=== PATIENT | male | born 1950 | race Caucasian/White ===

== ENCOUNTER → 2023-10-17 15:46 | Outpatient (REF) | payer BC, SELFPAY | LOC: RAD 15:46 | PROVIDERS: ATTENDING PHYSICIAN Specialist; FAMILY PHYSICIAN Internal Medicine | DX: N21.0 Calculus in bladder (principal); N20.1 Calculus of ureter; N20.0 Calculus of kidney | CPT/HCPCS: 74176 ==

== ENCOUNTER → 2023-12-14 06:26 | Day surgery (SDC) | payer BC, SELFPAY ==
[2023-12-14 09:00] LABS: Glucose - Point of Care 104 mg/dl (70-99)
== END ==
LOC: GI 06:26
PROVIDERS: ATTENDING PHYSICIAN Internal Medicine Gastroenterology; FAMILY PHYSICIAN Internal Medicine
DX: D12.3 Benign neoplasm of transverse colon (principal); D12.5 Benign neoplasm of sigmoid colon; K57.30 Diverticulosis of large intestine without perforation or abscess without bleeding; K64.8 Other hemorrhoids; R93.3 Abnormal findings on diagnostic imaging of other parts of digestive tract
CPT/HCPCS: 45385; 43235; 88305; 82962

== ENCOUNTER → 2023-12-27 08:28 | Outpatient (REF) | payer BC, SELFPAY ==
[2023-12-27 09:24] LABS: % Eosinophils 4.6 % (0-6); % Immature Granulocytes 0.6 % (0-0.5); % Lymphocytes 19.3 % (20.5-51.1); % Monocytes 6.3 % (1.7-9.3); % Neutrophils 68.2 % (42.2-75.2); Absolute Basophils 0.1 10^3/uL (0-0.2); Absolute Eosinophils 0.2 10^3/uL (0-0.7); Absolute Monocytes 0.3 10^3/uL (0.1-0.6); Absolute Neutrophils 3.6 10^3/uL (1.4-6.5); Hematocrit 43.3 % (39.0-52.0); Hemoglobin 14.3 g/dL (13.0-18.0); Mean Corpuscular Hgb 28.1 pg (27.0-31.0); Mean Corpuscular Volume 85.2 fL (80.0-94.0); Mean Platelet Volume 9.8 fL (7.4-10.4); Nucleated Red Blood Cells % 0 % (-); Platelet Count 254 10^3/uL (130-400); Red Blood Cell Count 5.08 10^6/uL (4.70-6.10); Red Cell Dist. Width 13.4 % (11.5-14.5); White Blood Cell Count 5.2 10^3/uL (4.8-10.8)
[2023-12-27 09:36] LABS: Erythrocyte Sed Rate 19 mm/hour (0-20)
[2023-12-27 12:25] LABS: Glycohemoglobin (HgbA1c) 6.7 % (4.0-5.6)
[2023-12-27 12:42] LABS: ALT (SGPT) 13 U/L (0-50); AST (SGOT) 18 U/L (17-59); Albumin 4.5 g/dl (3.5-5.0); Alkaline Phosphatase 115 U/L (38-126); Blood Urea Nitrogen 31 mg/dl (9-20); Calcium 9.9 mg/dl (8.4-10.2); Carbon Dioxide 28 mmol/L (22-30); Chloride 103 mmol/L (98-107); Glucose 131 mg/dl (70-99); HDL Cholesterol 47 mg/dl; LDL Cholesterol, Calculated 113 mg/dl; Potassium 4.8 mmol/L (3.5-5.1); Sodium 140 mmol/L (135-145); Total Bilirubin 0.6 mg/dl (0.2-1.3); Total Cholesterol 172 mg/dl (50-199); Total Protein 7.3 g/dl (6.3-8.2); Triglyceride 61 mg/dl (10-149); Very Low Density Lipoprotein 12 mg/dl (0-30); eGFR > 60.00
[2023-12-27 13:24] LABS: TSH 1.47 uIU/ml (0.47-4.68)
[2023-12-29 07:23] LABS: ANA, IgG Reflex to HEp-2 None Detected (None Detected)
[2023-12-29 10:33] LABS: Rheumatoid Agglutinin Less Than 10 IU (<10 IU)
== END ==
LOC: REG 08:28
PROVIDERS: ATTENDING PHYSICIAN Nurse Practitioner
DX: E11.9 Type 2 diabetes mellitus without complications (principal); E78.5 Hyperlipidemia, unspecified; Z87.438 Personal history of other diseases of male genital organs; R53.83 Other fatigue; M19.90 Unspecified osteoarthritis, unspecified site
CPT/HCPCS: 36415; 80053; 80061; 83036; 84153; 84154; 84443; 85025; 85652; 86038; 86430

== ENCOUNTER 2024-01-04 06:07 | Day surgery (SDC) | payer BC, SELFPAY ==
[2023-12-30 12:58] VITALS: BMI 42.8
[2023-12-30 13:15] LABS: Urine Albumin 2+ (Neg - Trace); Urine Bilirubin Negative (Negative); Urine Character Slightly Cloudy (Clear); Urine Color Yellow; Urine Glucose Negative (Negative); Urine Ketone Trace (Negative); Urine Leukocyte 2+ (Negative); Urine Nitrite Negative (Negative); Urine Occult Blood 4+ (Negative); Urine Urobilinogen Negative (Neg - 1+)
[2023-12-30 13:25] LABS: Urine Red Blood Cell 50-60 /HPF (0-2)
[2023-12-30 13:26] LABS: Urine Bacteria Moderate (Negative); Urine White Cell 26-30 /HPF (0-5)
[2023-12-30 13:32] LABS: INR 1.05; PT 13.6 Sec (11.4-14.6)
[2023-12-30 13:33] LABS: APTT 34.7 Sec (23.4-35.0)
--- NOTE | 2023-12-30 13:40 | PTCARENOTE ---
Debby in Dr. Nicholas's office made aware of urine WBC 26-30 and moderate bacteria.
[2024-01-04] VITALS (7 sets, daily range): BP systolic 133–177; BP diastolic 75–90; BMI 42.8
[2024-01-04] MEDS: NORMOSOL-R 1000 IV (06:45)
[2024-01-04 06:55] LABS: Glucose - Point of Care 122 mg/dl (70-99)
[2024-01-04 08:54] LABS: Glucose - Point of Care 127 mg/dl (70-99)
[2024-01-04] MEDS: Pyridium 200 MG PO (09:16)
== END 2024-01-04 10:21 | disposition home or self-care (01) ==
LOC: SDS 06:07
PROVIDERS: ATTENDING PHYSICIAN Specialist; FAMILY PHYSICIAN Nurse Practitioner; OTHER PHYSICIAN Internal Medicine Cardiovascular Disease
DX: N20.2 Calculus of kidney with calculus of ureter (principal); Z86.19 Personal history of other infectious and parasitic diseases
CPT/HCPCS: 52356; 36415; 74018; 76000; 81003; 81015; 82962; 85610; 85730; 93005; C2617

== ENCOUNTER → 2024-09-12 10:02 | Outpatient (REF) | payer BC, SELFPAY ==
[2024-09-12 11:16] LABS: % Basophils 0.6 % (0-2); % Eosinophils 2.1 % (0-6); % Lymphocytes 13.4 % (20.5-51.1); % Monocytes 6.1 % (1.7-9.3); % Neutrophils 76.8 % (42.2-75.2); Absolute Basophils 0.1 10^3/uL (0-0.2); Absolute Eosinophils 0.2 10^3/uL (0-0.7); Absolute Immature Granulocytes 0.1 10^3/uL (0-0.05); Absolute Lymphocytes 1.1 10^3/uL (1.2-3.4); Absolute Monocytes 0.5 10^3/uL (0.1-0.6); Absolute Neutrophils 6.3 10^3/uL (1.4-6.5); Hematocrit 42.5 % (39.0-52.0); Hemoglobin 13.9 g/dL (13.0-18.0); Mean Corp Hgb Conc. 32.7 g/dL (33.0-37.0); Mean Corpuscular Hgb 28.4 pg (27.0-31.0); Mean Corpuscular Volume 86.7 fL (80.0-94.0); Mean Platelet Volume 10.3 fL (7.4-10.4); Nucleated Red Blood Cells % 0 % (-); Platelet Count 273 10^3/uL (130-400); Red Cell Dist. Width 12.7 % (11.5-14.5); White Blood Cell Count 8.2 10^3/uL (4.8-10.8)
[2024-09-12 11:40] LABS: Glycohemoglobin (HgbA1c) 8.5 % (4.0-5.6)
[2024-09-12 11:51] LABS: ALT (SGPT) 17 U/L (0-50); AST (SGOT) 18 U/L (17-59); Albumin 4.3 g/dl (3.5-5.0); Alkaline Phosphatase 117 U/L (38-126); Blood Urea Nitrogen 35 mg/dl (9-20); Calcium 9.6 mg/dl (8.4-10.2); Carbon Dioxide 27 mmol/L (22-30); Chloride 101 mmol/L (98-107); Glucose 160 mg/dl (70-99); HDL Cholesterol 35 mg/dl; LDL Cholesterol, Calculated 128 mg/dl; Potassium 4.7 mmol/L (3.5-5.1); Sodium 139 mmol/L (135-145); Total Bilirubin 0.8 mg/dl (0.2-1.3); Total Cholesterol 184 mg/dl (50-199); Total Protein 6.9 g/dl (6.3-8.2); Triglyceride 106 mg/dl (10-149); Very Low Density Lipoprotein 21 mg/dl (0-30); eGFR > 60.00
[2024-09-12 13:22] LABS: TSH 1.08 uIU/ml (0.47-4.68)
[2024-09-12 13:28] LABS: NT-proBNP 36.4 pg/ml
== END ==
LOC: RAD 10:02
PROVIDERS: ATTENDING PHYSICIAN Nurse Practitioner
DX: J06.9 Acute upper respiratory infection, unspecified (principal); E11.9 Type 2 diabetes mellitus without complications; I48.0 Paroxysmal atrial fibrillation; N40.1 Benign prostatic hyperplasia with lower urinary tract symptoms; R60.0 Localized edema
CPT/HCPCS: 36415; 71046; 80053; 80061; 83036; 83880; 84443; 85025; G0103

== ENCOUNTER 2025-06-04 20:03 | Inpatient (IN) | payer BC, MEDICARE, SELFPAY ==
[2025-06-04] VITALS (11 sets, daily range): BP systolic 100–155; BP diastolic 47–93; BMI 46.9; BMI 46.0
[2025-06-04 16:14] LABS: Hematocrit 46.5 % (39.0-52.0); Hemoglobin 15.1 g/dL (13.0-18.0); Mean Corp Hgb Conc. 32.5 g/dL (33.0-37.0); Mean Corpuscular Volume 85.8 fL (80.0-94.0); Nucleated Red Blood Cells % 0 % (-); Platelet Count 297 10^3/uL (130-400); Red Cell Dist. Width 13.6 % (11.5-14.5)
[2025-06-04 16:29] LABS: ALT (SGPT) 17 U/L (0-50); AST (SGOT) 19 U/L (17-59); Albumin 4.5 g/dl (3.5-5.0); Alkaline Phosphatase 158 U/L (38-126); Blood Urea Nitrogen 38 mg/dl (9-20); Calcium 9.8 mg/dl (8.4-10.2); Carbon Dioxide 27 mmol/L (22-30); Chloride 102 mmol/L (98-107); Estimated Creatinine Clearance 77 ml/min; Glucose 180 mg/dl (70-99); Potassium 4.8 mmol/L (3.5-5.1); Sodium 140 mmol/L (135-145); Total Protein 7.6 g/dl (6.3-8.2); eGFR > 60.00
--- NOTE | 2025-06-04 17:28 | ED.GENMED ---
History of Present Illness
General
Chief Complaint: Bowel Problem
Time Seen by Provider: 06/04/25 15:59
History of Present Illness
History of Present Illness:
FOCUSED PAST MEDICAL HISTORY
- Paroxysmal A-fib, high blood pressure, has had GI bleed, frequent falls according to the
REVIEW OF OLD RECORDS
- The patient had management of kidney stones with Dr. Nicholas in 2023 operatively
Note:
CHIEF COMPLAINT(S)
Constipation and shortness of breath.
HISTORY OF PRESENT ILLNESS
The patient is a 75-year-old male who presented to the emergency department with complaints of constipation and shortness of breath. He reports that he has not had a bowel movement in the last few days and experienced difficulty and discomfort while
attempting to defecate. The patient noted increased sweating during these attempts. He also experienced shortness of breath, particularly when trying to go to the bathroom.
Upon arrival, the patients oxygen saturation level was critically low at 80%. He noted that his usual oxygen levels are typically around 94%. The patient denies any previous episodes of blood clots, chronic obstructive pulmonary disease, or heart
failure. He does report having fallen from a ladder five days ago, which resulted in bruising on the thigh and a break in his arm. Additionally, he has some swelling in the legs and a sensation of pressure in the groin area, due to his constipation.
During the physical examination, the patient acknowledged tenderness upon abdominal palpation. There is no reported history of chronic lung or heart issues; however, his oxygen saturation and symptoms necessitate further investigation for potential
pulmonary embolism, thus a CT scan of the chest and abdomen is planned.
PAST MEDICAL AND SURGICAL HISTORY
History of arm fracture secondary to a fall from a ladder five days prior.
SOCIAL HISTORY
No history of chronic lung or cardiovascular issues reported, but experiences occasional low oxygen levels.
PHYSICAL EXAM
Respiratory: Critically low oxygen saturation (80%); shortness of breath noted, especially with exertion.
Gastrointestinal: Mild diffuse abdominal tenderness; constipation noted with associated pressure in the groin area. No definite rectal fecal impaction however exam is limited based on body habitus
Musculoskeletal: Bruising on the posterolateral left thigh from recent fall; splint left forearm noted
- General: The patient appears somewhat weak and debilitated, elevated BMI
- HEENT: Moist oral mucosa
- Cardiovascular: No murmurs, normal heart rate, regular rhythm, No chest wall tenderness
- Pulmonary: No respiratory distress, breath sounds are clear and equal
- Abdomen: Soft with no peritoneal signs, no tenderness
- Neurologic: Fair strength all extremities, no coordination deficits
- Psychiatric: Appropriate mental status, normal insight and judgement
- Skin: Areas of ecchymosis noted predominantly in the lumbar/buttock/thigh region
PROBLEM LIST
Acute:
1. Constipation
2. Shortness of breath and low oxygen saturation
3. Bruising and fracture from recent fall
PLAN
1. Plan to conduct a CT scan of the chest to rule out pulmonary embolism given the history of low oxygen levels and shortness of breath.
2. CT scan of the abdomen to assess any abdominal pathology contributing to constipation and distension.
3. Initiate oxygen therapy to address low oxygen saturation levels.
4. Monitor and manage leg swelling.
5. Manage constipation symptoms and assess need for further interventions.
DIFFERENTIAL DIAGNOSIS
The Differential Diagnosis includes, in no particular order and is not limited to:
1. Constipation-induced abdominal pain
2. Pulmonary embolism
3. Heart failure exacerbation
4. Chronic obstructive pulmonary disease exacerbation
5. Pneumonia
6. Gastrointestinal obstruction
7. Acute coronary syndrome
8. Pleural effusion
9. Deep venous thrombosis
10. Abdominal aortic aneurysm
RADIOLOGY
- I personally reviewed CT and agree with radiologist interpretation of the small PE in the right upper; constipation noted
EKG
- Sinus 61, nonspecific ST abnormality, no significant change from 12/30/2023
LABS
- White count 15.7, hemoglobin normal, BNP 51
UPDATE
-SUMMARY OF ENCOUNTER
The patient, a 75-year-old male, presented to the emergency department with complaints of constipation, abdominal discomfort, and critically low oxygen saturation at 80%. Despite initial stability at home, his condition warranted an emergency visit
primarily due to severe abdominal discomfort and sweating. Upon evaluation, a CT scan was performed which revealed the presence of constipation without obstruction, and a small pulmonary embolism. The scan also noted inflammation around the kidney,
suggesting a possible kidney infection. Due to low oxygen levels, a decision was made to initiate treatment with blood thinners and Miralax (polyethylene glycol) for constipation. Additional management included oxygen therapy.
DISPOSITION
Admit for further management and observation due to low oxygen saturation and need for anticoagulation therapy.
ASSESSMENT
The patient has a confirmed small pulmonary embolism, significant constipation without obstruction, possible pyelonephritis indicated by kidney inflammation, and hypoxemia needing continuous oxygen therapy.
EMERGENCY TREATMENTS ADMINISTERED
Initiated therapy with Miralax (polyethylene glycol) for constipation treatment. Oxygen therapy was adjusted to maintain saturation above 95%.
PLAN
1. Admit to the hospital for observation and continued management.
2. Initiate anticoagulation therapy for pulmonary embolism.
3. Continue oxygen therapy and adjust as needed to maintain oxygen saturation.
4. Administer Miralax for constipation treatment and increase fluid intake.
5. Obtain a urine sample to evaluate for urinary tract infection, given the inflammation near the kidney.
6. Monitor closely for complications related to falls due to the patients history of falls and anticoagulation risk.
MEDICAL DECISION MAKING
1. Number and Complexity of Problems Addressed: Chronic conditions affecting care include recent fall causing bruising and fracture, shortness of breath, and constipation. DDx includes pulmonary embolism, constipation-induced abdominal pain,
pneumonia, and deep venous thrombosis.
2. Data:
Category 1:
- CT scan of chest and abdomen reviewed confirming pulmonary embolism and constipation without obstruction.
Category 2:
- History obtained from the patients confirming baseline health status and recent lack of medication for constipation.
3. Risk:
- Initiation of anticoagulation therapy for pulmonary embolism.
Room air sats 95% on 4 L/min of oxygen (down from 6 L/min of oxygen)
Past History
Past History
ED Past Medical History: HTN, NIDDM and Other (Diabetes, hypertension, hypercholesterolemia, kidney stones)
ED Past Surgical History: Other
Social History
Tobacco: Non-smoker
Alcohol: None
Drug: None
Personal:
Living: with family
Family History
Family History: Other (Mother with lung cancer father with diabetes and atrial fibrillation)
Phy Exam
Physical Exam
Physical Exam:
See HPI
Course
Orders/Labs/Results
Orders:
Orders
06/04/25 15:57
BNP [NT-proBNP] Urgent
CBC/With Diff [Complete Blood Count/With Diff] Urgent
CMP [Comprehensive Metabolic Panel] Urgent
06/04/25 16:01
Electrocardiogram (*1) Urgent
Reason for Study: Chest Pain
EKG- Treatment ONCE
06/04/25 16:02
CT Pe/abd/pel W Urgent
Reason For Exam: 80% RA, LUE fracture; SOB
06/04/25 16:03
O2 Therapy [RESP] Urgent
Nasal Cannula Liter Flow: 6 LPM
Titrate/Wean O2 to maintain O2 sat greater than (%): 92
06/04/25 18:36
Heparin 10,000 units IV NOW STA
Pharmacy Request to Place See Dose Instructions PO NOW STA
Discontinue all Active Warfarin orders?: Yes
06/04/25 18:37
PTT Urgent
Comment: Obtain baseline before beginning heparin infusion if not already collected
Nursing to Place Non Medication Order As Directed
Physician Order: PTT 6 hours after initial start of Heparin infusion
06/04/25 18:45
Heparin INFUSION titrate rate - CONTINUOUS Heparin 61244 Units/250 ml 25,000 units in 250 ml IV PER PROTOCOL
Weight to be used for heparin protocol in kilograms (kg):: 139.8
Protocol:: DVT/PE
PTT Goal Range to be used:: PTT 73 to 111 seconds
Order type:: Initial
INITIAL Infusion Dose (UNITS/KG/hr) & then follow protocol:: 18 units/kg/hr
Infusion Dose in UNITS/hr & then follow protocol (UNITS/hr):: 2,000
INFUSION RATE in mL/hr & then follow protocol (mL/hr):: 20
For DVT/PE algorithm, re-bolus for low PTT?: Yes
PTT less than or equal to 64 seconds:: Re-bolus 80 units/kg (max 10,000units). Increase by 500 units/hr
(+ 5mL/hr)
PTT 64.1 to 72.9 seconds:: Re-bolus 40 units/kg (max 5,000 units). Increase by 300 units/hr
(+ 3mL/hr)
PTT 73 to 111 seconds:: Target Range. No change in rate.
PTT 111.1 to 130.9 seconds:: Decrease rate by 300 units/hr (- 3 mL/hr)
PTT 131 to 199.9 seconds:: HOLD for 1 hr. Then decrease by 400 units/hr (- 4mL/hr)
PTT greater than or equal to 200 seconds:: HOLD for 2 hrs & Notify Provider. Then decrease by 500 units/hr
(- 5mL/hr)
Lab follow-up:: Each change, PTT q6h until 2 consecutive are therapeutic. Then
PTT daily.
06/04/25 19:[address] See Dose Instructions IV DIRECTED
Abnormal Lab Results
06/04/25
15:57
WBC 15.7 H 10^3/uL
(4.8-10.8)
MCHC 32.5 L g/dL
(33.0-37.0)
Abs Immat Gran (auto) 0.1 H 10^3/uL
(0-0.05)
Absolute Neuts (auto) 13.3 H 10^3/uL
(1.4-6.5)
Absolute Monos (auto) 0.7 H 10^3/uL
(0.1-0.6)
Immature Gran % 0.6 H %
(0-0.5)
Neutrophils % 85.0 H %
(42.2-75.2)
Lymphocytes % 8.4 L %
(20.5-51.1)
BUN 38 H mg/dl
(9-20)
Glucose 180 H mg/dl
(70-99)
Alkaline Phosphatase 158 H U/L
(38-126)
06/04/25 15:57
06/04/25 15:57
Vital Signs
Initial and Last Documented VS:
Initial Vital Signs
Temp Pulse Resp BP Pulse Ox
36.9 C 60 21 131/59 92
06/04/25 15:48 06/04/25 15:48 06/04/25 15:48 06/04/25 15:48 06/04/25 15:48
Last Documented Vital Signs
Temp Pulse Resp BP Pulse Ox
36.9 C 58 25 100/47 93
06/04/25 15:48 06/04/25 17:30 06/04/25 17:30 06/04/25 17:28 06/04/25 17:31
*Pulse Oximetry
SaO2: 93
Nasal Cannula flow liters per minute: 6
Patient hypoxic: no
*Critical Care Note
Total Time (30-74mins, 75-104mins- exclusive of procedures): Not Applicable
ED Attending Note
-
Portions of this chart may have been created with voice recognition software.� Occasional wrong word or��sound alike� substitutions may have occurred due to the inherent limitations of voice recognition software.
Discharge Plan
Departure
Prescriptions:
No Action
metformin 500 mg tablet
500 mg PO DAILY
pravastatin 40 mg tablet
40 mg PO DAILY
trandolapril-verapamil 4-240 mg tablet, IR - ER, biphasic 24hr
1 tab PO DAILY
Patient Comments:
06/09/2023: FAMILY WILL SEND MED WITH PT
Saccharomyces boulardii 250 mg Capsule
250 mg PO DAILY 5 Days Qty: 5 0RF
furosemide [Lasix] 20 mg Tablet
20 mg PO DAILY PRN (Reason: swelling)
potassium citrate 15 mEq Tablet Extended Release
60 meq PO BID
Referrals:
UNKNOWN - PT DOES,NOT KNOW [Family Provider]
Interventions
Interventions:
*General Assessment Last Done: 06/04/25 15:48
*Neglect/Abuse Screening Last Done: 06/04/25 15:48
*ED- Fall Risk Assessment Last Done: 06/04/25 15:48
*ED COVID-19 Vaccine History Last Done: 06/04/25 15:48
*ED Influenza Vaccine History Last Done: 06/04/25 15:48
BD-Cfchhf-Fgkljscoso Assessment Last Done: 06/04/25 16:00
Discharge Date and Time
Print Language: CHINESE
[2025-06-04 18:59] LABS: APTT 29.3 Sec (23.4-35.0)
--- NOTE | 2025-06-04 19:07 | HPS.HSE ---
Family Physician
-
Family Physician: NOT KNOW UNKNOWN - PT DOES
Chief Complaint
-
Constipation
History of Present Illness
This is a 75-year-old male with past medical history significant for hypertension, eff-ceyutme-brvkjfwzu diabetes, hyperlipidemia, obesity, presenting to the emergency department after developing diaphoresis and shortness of breath at home in the
setting of recent constipation. Found to be hypoxic by EMS and low sats here in the emergency department.
Patient had a mechanical fall 5 days ago with bruising of the lower back as well as left olecranon minimally displaced fracture. Patient has had the arm in a cast denies pending evaluation at outpatient orthopedics next week. He reports that he
had otherwise been doing well up until today when he had increasing with bilateral lower abdominal pain and felt constipated. He attempted to have a bowel movement pending he developed diaphoresis shortness of breath and spouse reported that his
color change. He became hypoxic. Patient himself denied having any chest pain. He denied any nausea or vomiting at the time. Spouse aware that the blood pressure went down but he were not able to give me number. When EMS arrived patient was
found to be hypoxic to the 80s. He was not in any extremis.
Patient himself denies having any recent cough or fevers or chills. He denies any urinary symptoms. He denies any prior history of thromboembolism.
In the emergency department patient was afebrile, blood pressure was 150/60 with a pulse of 59 and was satting 80s on room air. 98% on 2 L. ECG shows a normal sinus rhythm at a rate of [address] or T wave changes. He had a white count of
15.7 otherwise CBC was unremarkable. Electrolytes were normal. BUN and creatinine were unremarkable and unchanged from prior. Glucose was 180.
CTA shows a small nonocclusive pulmonary embolism in the right upper lobe anterior segmental pulmonary artery. Borderline right ventricular heart strain versus elevated right-sided heart pressure/mild tricuspid insufficiency with minor reflux of
contrast material into the inferior vena cava and an RV to LV ratio of 1.0. Moderate to large colonic fecal burden containing solid as well as liquid fecal residue. Findings suspicious for subtle nonspecific colitis of the descending colon.
Medical History
Past Medical History
Past Medical History: Reports HTN, Hypercholesterolemia and NIDDM
Past Surgical History: Reports Other
Social History
Tobacco: Non-smoker
Alcohol: None
Drug: None
Personal:
Living: With Family
Employment: Retired
Family History
Family History: Not pertinent
Allergies / Home Medications
Allergies reflects when Allergies were last updated in [facility].
Home Medications with original date entered in [facility]
Allergy/Medication List:
Allergies
Allergy/AdvReac Type Severity Reaction Status Date / Time
cat dander Allergy EYES SWELL Verified 01/04/24 06:24
peach ([place]) Allergy lips swell Verified 01/04/24 06:24
venom-honey bee Allergy sting-facial Verified 01/04/24 06:24
swelling
Home Medications
metformin 500 mg tablet 500 mg PO DAILY Diabetes 06/09/23
pravastatin 40 mg tablet 40 mg PO DAILY High Cholesterol 06/09/23
trandolapril 4 mg-verapamil ER 240 mg tablet,immed-exten release 24 hr 1 tab PO DAILY Blood Pressure 06/09/23
Saccharomyces boulardii 250 mg capsule 250 mg PO DAILY 5 days #5 caps 06/20/23
furosemide 20 mg tablet (Lasix) 20 mg PO DAILY PRN swelling 12/30/23
potassium citrate 15 mEq (1,620 mg) tablet,extended release 60 meq PO BID 12/30/23
Review of Systems
-
History Source: Patient and Family
Constitutional: Reports No Symptoms
EENT: Reports No Symptoms
Respiratory: Reports No Symptoms
Cardiac: Reports Diaphoresis
Abdomen/GI: Reports Abdominal Pain and Constipated
: Reports No Symptoms
Musculoskeletal: Reports No Symptoms
Skin: Reports No Symptoms
Neurological: Reports No Symptoms
Endocrine: Reports No Symptoms
Hematologic/Lymphatic: Reports No Symptoms
Psych: Reports No Symptoms
Physical Exam
Vital Signs
Vital Signs
Temp Pulse Resp BP Pulse Ox
98.5 F 59 19 149/67 98
06/04/25 15:48 06/04/25 18:45 06/04/25 18:45 06/04/25 18:00 06/04/25 18:45
Physical Exam
General: Conversant and Obese; No Fever or Chills
HEENT: NormoCephalic, Anicteric, Moist mucous membranes, PERRLA and [place] Conjunctivae
Respiratory: Clear; No Wheezes, Rales or Rhonchi
Cardiac: S1/S2 and Regular Rhythm; No Murmur, Rub or Gallop
Breast: Deferred by me
GI: Normal Bowel Sounds, Tender (left flank to left side abdomen ) and Distended (mild with chornic protuberant abdomen due to obesity )
Rectal: Deferred by Provider
Genito-urinary: Costovertebral angle tend (left)
Musculoskeletal: No Clubbing, No Cyanosis and No Edema
Skin: Warm and Dry; No Rash
Neuro: AO x 3, No Motor Deficits, Nonfocal/grossly intact and Cranial Nerves Intact; No Slurred Speech, Facial Droop or Tremors
Psych: Calm
Laboratory Results
-
06/04/25 15:57
06/04/25 15:57
Laboratory Results
APTT 29.3 Sec (23.4-35.0) 06/04/25 18:41
Total Bilirubin 1.1 mg/dl (0.2-1.3) 06/04/25 15:57
AST 19 U/L (17-59) 06/04/25 15:57
ALT 17 U/L (0-50) 06/04/25 15:57
Alkaline Phosphatase 158 U/L (38-126) H 06/04/25 15:57
Data Reviewed
-
CT Scan: Report Reviewed by me
Medical Tests (Nuc Med, Echo, EKG etc): Image Personally Visualized and interpreted
Lab Data: Labs Reviewed by me
Old Records: Reviewed
Impression/Plan
-
IMPRESSION:
75-year-old with past medical history significant hypertension, iek-inuebiu-ytqiizthz diabetes, hyperlipidemia, obesity, history of BPH status post TURP, , stercoral ulcer of the rectum in the past presents to the emergency department with episode
of diaphoresis shortness of breath and hypoxia and is found to have a new small nonocclusive pulmonary embolism in the right upper lobe with CT scan showing borderline right ventricular heart strain versus elevated right-sided heart pressure from
vascular insufficiency. He is currently satting 100% on 3 to 4 L. He is hemodynamically stable at this time. ECG shows a nonischemic pattern. Troponin was not obtained. BNP was negative. No infiltrates on CT scan. CT of the abdomen revealed
nonobstructive renal calculi with renal stranding suggestive of possible pyelitis. Moderate to large colonic fecal burden containing solid as well as liquid fecal residue.
PLAN:
1. Pulmonary embolism -provoked, small PE on CT scan but cannot rule out submassive PE due to possibility of RV strain and episode of diaphoresis and hypoxia.
-Admit to telemetry
-IV heparin for now
-check troponin
- u/s cj LE
-Echo in a.m.
-Supplemental oxygen as needed
-Pain control
2. Stercoral colitis -constipation with moderate to large stool burden, no impaction on rectal exam
- Trial of mag citrate now
- Continue with laxative regimen
3. Pyelitis on CT scan -possible versus artifact. No renal discomfort, and no dysuria frequency or urgency
- UA is pending, if positive we will start on IV ceftriaxone
4. DM2
- Hold metformin x 48 hours
- Sliding scale insulin
5. Hypertension -currently stable
- Restart BP meds trandolapril/verapamil in a.m.
- Continue Lasix 20 mg daily with potassium supplementation
6. Elbow fracture
-Keep immobilized in cast
- Outpatient follow-up with Ortho
CODE STATUS�full code
[2025-06-04] MEDS: NSS 1000 IV (20:34)
[2025-06-04] MEDS: HEPARIN 25000 UNITS/250 ML IV (22:03)
[2025-06-04] MEDS: HEPARIN 10000 UNITS IV (22:04)
[2025-06-04 22:17] LABS: INR 0.96; PT 13.1 Sec (11.4-14.6)
[2025-06-04 22:37] LABS: Urine Character Clear (Clear)
[2025-06-04 22:43] LABS: Urine Red Blood Cell 0-2 /HPF (0-2); Urine Squamous Cell 0-2 /LPF (Few)
[2025-06-04 22:44] LABS: Urine White Cell 26-30 /HPF (0-5)
--- NOTE | 2025-06-04 22:55 | PTCARENOTE ---
Received pt from ER via stretcher, accompanied by ER staff and spouse. Pt AAOx3, ambulatory to bed with 2x assist, VSS sating 99% on 4L NC, w/o complaints of pain. Placed on telemetry. Pt is oriented to room with call crowder within reach.
[2025-06-05] MEDS: COLACE 100 MG PO ×2 (00:22→12:03)
[2025-06-05 00:33] LABS: Troponin I < 0.012 ng/ml
[2025-06-05 03:08] VITALS: BP 123/58
[2025-06-05 05:05] LABS: Hematocrit 38.7 % (39.0-52.0); Hemoglobin 12.9 g/dL (13.0-18.0); Mean Corp Hgb Conc. 33.3 g/dL (33.0-37.0); Mean Corpuscular Volume 86.0 fL (80.0-94.0); Platelet Count 235 10^3/uL (130-400); Red Cell Dist. Width 13.5 % (11.5-14.5)
[2025-06-05 05:12] LABS: APTT 71.9 Sec (23.4-35.0)
[2025-06-05] MEDS: HEPARIN 5000 UNITS IV (05:16)
[2025-06-05 05:37] LABS: Troponin I < 0.012 ng/ml
[2025-06-05 06:28] VITALS: BMI 46.0
[2025-06-05 08:20] VITALS: BP 149/71
[2025-06-05 08:21] LABS: Glucose - Point of Care 172 mg/dl (70-99)
[2025-06-05] MEDS: ROCEPHIN 1000 MG IV (09:40)
[2025-06-05] MEDS: STERILE WATER FOR INJECTION 10 ML IV (09:42)
[2025-06-05] MEDS: HEPARIN 25000 UNITS/250 ML IV ×2 (09:49→21:33)
[2025-06-05] MEDS: NOVOLOG FLEXPEN-LOW RESISTANCE SC ×3 (10:36→16:42)
[2025-06-05 11:00] VITALS: BP 146/71
--- NOTE | 2025-06-05 11:00 | CARDSERVLU ---
Echocardiogram with [facility] completed after protocol screening completed. Allergies verified.
Patent IV site: __R AC___
IV site flushed with 0.9% NaCl pre and post administration.
Diluted bolus method utilized to enhance visualization of ventricular sanches.
Total volume given: __2.5__ mL
Patient tolerated all procedures well without complications.
[2025-06-05 11:39] LABS: Glucose - Point of Care 135 mg/dl (70-99)
--- NOTE | 2025-06-05 11:51 | W.PN.HOSP.TC ---
Addendum entered and electronically signed by Sonny Van MD 06/05/25 15:27:
Discussed with spouse over the phone
Original Note:
Today's Communication/Plan
-
Monitor vital signs and see plan
Pain control
Mag citrate, laxatives
Follow urine culture
Continue with ceftriaxone
Check echo
Check lower extremity Doppler
Assessment / Plan
Assessment / Plan
General: Conversant and Obese; No Fever or Chills
HEENT: NormoCephalic, Anicteric, Moist mucous membranes
Respiratory: Clear; No Wheezes, Rales or Rhonchi
Cardiac: S1/S2 and Regular Rhythm; No Murmur, Rub or Gallop
GI: Normal Bowel Sounds, Tender (left flank to left side abdomen ) and Distended (mild with chornic protuberant abdomen due to obesity )
Genito-urinary: Costovertebral angle tend (left)
Neuro: AO x 3, No Motor Deficits, Nonfocal/grossly intact
Psych: Calm
Pulmonary embolism - likely provoked, small PE on CT scan but cannot rule out submassive PE due to possibility of RV strain and episode of diaphoresis and hypoxia.
Acute hypoxic respiratory insufficiency likely secondary to above
-IV heparin for now
-trop noted
- u/s cj LE
-Echo
pulmonary eval
-Supplemental oxygen as needed; Currently on 4 L, wean oxygen as tolerated
-Pain control
Stercoral colitis -constipation with moderate to large stool burden, no impaction on rectal exam
- Trial of mag citrate; refused last night
- Continue with laxative regimen
Pyelitis on CT scan - does report urgency
ua suggestive of UTI; start abx
Urinary retention, history of BPH status post TURP
Start Flomax
Bladder scan as needed
DM2
- Hold metformin for now
- Sliding scale insulin
Hypertension -currently stable
continue verapamil,lisinopril
- Continue Lasix 20 mg prn
left olecranon minimally displaced fracture
-Keep immobilized in cast
- Outpatient follow-up with Ortho
CODE STATUS�full code
I spent a total of 52 minutes with the patient or on the floor. More than 50% of this time involved counseling and coordination of care.
Anticipated Discharge: > 48 hours
Subjective/Interval History
-
Date of Service: June 05, 2025
denies nausea
Objective Data
-
Labs:
Laboratory Results
06/05/25 06/05/25
04:40 11:20
WBC 12.5 H
Hgb 12.9 L
Hct 38.7 L
Plt Count 235 D
APTT 71.9 H Pending
Vital Signs:
Vital Signs
Temp Pulse Resp BP Pulse Ox
97.7 F 72 18 149/71 98
06/05/25 08:20 06/05/25 08:20 06/05/25 08:20 06/05/25 08:20 06/05/25 08:20
I&O
06/04/25 06/05/25 06/06/25
06:59 06:59 06:59
Intake Total 1880 / 1880
Output Total 1550 / 1550
Balance 330 / 330
--- NOTE | 2025-06-05 11:53 | CON.PUL ---
Consultation
Consultation Request
Date/Time Consultation Requested: 06/05/2025
Date/Time Consultation Performed: 06/05/2025
Requesting Provider: Dr. Van
Performing Provider: Dr. Delmer Holder
Reason for Consultation: Acute pulmonary embolism
Medical History
-
History of Present Illness:
75-year-old man with past medical history significant for hypertension, zfc-upcmimi-kzgxrkspl diabetes, hyperlipidemia, obesity who presented to the emergency department after developing shortness of breath, diaphoresis at home. Patient was found
to be hypoxemic by EMS in the emergency department.
Patient reports having a mechanical fall 5 days ago injuring his back with subsequent bruising and also has left olecranon minimally displaced fracture. He will see orthopedics next week.
Repeated for the last several days.
He tried without a bowel movement and developed diaphoresis and shortness of breath.
EMS found the patient to be hypoxic down to 80%.
Patient required 2 L supplemental oxygen to maintain pulse ox above 90%.
CT angiogram of the chest documented small nonocclusive pulmonary embolism in the right upper lobe.
Right ventricular heart strain by imaging.
Moderate large colonic fecal burden.
We were consulted on 06/05/2025 for evaluation of pulmonary embolism
Past Medical History
Past Medical History: Other (see A&P for PMH/PSH)
Social History
Tobacco: Non-smoker
Alcohol: None
Drug: None
Personal:
Living: With Family
Employment: Retired
Family History
Family History: Reviewed & Not Pertinent
Allergies / Home Medications
Allergies
Allergy/AdvReac Type Severity Reaction Status Date / Time
cat dander Allergy EYES SWELL Verified 01/04/24 06:24
peach ([place]) Allergy lips swell Verified 01/04/24 06:24
venom-honey bee Allergy sting-facial Verified 01/04/24 06:24
swelling
Home Medications
�Medication �Instructions �Recorded �Confirmed �Last Taken �Type
pravastatin 40 mg tablet 40 mg PO DAILY High Cholesterol 06/09/23 06/04/25 06/04/25 History
trandolapril 4 mg-verapamil ER 240 1 tab PO DAILY Blood Pressure 06/09/23 06/04/25 06/04/25 History
mg tablet,immed-exten release 24 hr
Saccharomyces boulardii 250 mg 250 mg PO DAILY 5 days #5 caps 06/20/23 06/04/25 06/04/25 Rx
capsule
furosemide 20 mg tablet (Lasix) 20 mg PO DAILY PRN swelling 12/30/23 06/04/25 06/04/25 History
potassium citrate 15 mEq (1,620 60 meq PO BID Supplement 12/30/23 06/04/25 06/04/25 History
mg) tablet,extended release
metformin 850 mg tablet 850 mg PO BID Diabetes 06/04/25 06/04/25 06/04/25 History
Review of Systems
-
History Source: Patient
All other systems: Negative unless noted
Vitals / Labs / Diagnostic Testing
Vital Signs
Temp Pulse Resp BP Pulse Ox
97.7 F 72 18 149/71 98
06/05/25 08:20 06/05/25 08:20 06/05/25 08:20 06/05/25 08:20 06/05/25 08:20
Lab Data
06/05/25 04:40
06/04/25 15:57
Laboratory Results
06/04/25 06/04/25 06/05/25
18:41 19:07 04:40
PT 13.1 Cancelled
INR 0.96 Cancelled
APTT 29.3 71.9 H
Diagnostic Testing:
Assessment
-
Acute pulmonary bmckceac-eljkzlqs-fyfsk clot burden. Unlikely to be related to episode of dizziness.
Risk factor recent fall/immobility
Lower extremity ultrasound 06/05/2025: No DVT
Diaphoresis/hypoxia on admission: Suspect more related to constipation/vasovagal.
Constipation-stercoral colitis
-
Snoring- suspect SUSAN
-
Conditions present prior admission:
Mechanical fall-elbow fracture status post recent fall.
Type 2 diabetes
Hypertension
Obesity
Assessment and plan:
Small pulmonary embolism likely provoked from recent fall and immobility.
I doubt episode of dizziness that the patient describes was related to pulmonary embolism. I think more related to constipation and straining/vasovagal effect.
Oxygen supplementation has been weaned off. Currently on room air, not tachycardic. Denies shortness of breath.
Echocardiac reviewed, without RV dysfunction.
Recommend 3 months of anticoagulation.
Currently on heparin-follow PTT. Once other issues resolve and there is no procedures planned can transition to oral anticoagulants.
-
Stercoral colitis management per primary team.
Antibiotics for possible UTI per primary team.
-
Left olecranon fracture-eventual orthopedic evaluation
Analgesia per primary team
-
Suspect SUSAN- discussed with patient and - Recommend testing in outpx.
-
Will follow
Eventual pulmonary evaluation in the outpatient setting.

Data reviewed:
-
CT angiogram of the chest: Small filling defects in the right upper lobe anterior segmental pulmonary arteries consistent with pulmonary embolism.
-
Echocardiogram 06/05/2025: Ejection fraction 60 to 65%.
Normal right ventricular size and function.
Mild MR.
[2025-06-05] MEDS: UROCIT-K 30 MEQ PO ×2 (12:02→19:46)
[2025-06-05] MEDS: VISBIOME 1 CAP PO (12:03)
[2025-06-05] MEDS: PRAVACHOL 40 MG PO (12:03)
[2025-06-05] MEDS: CALAN EXTENDED RELEASE 240 MG PO (12:03)
[2025-06-05] MEDS: ZESTRIL 40 MG PO (12:03)
[2025-06-05] MEDS: MIRALAX 17 GRAMS PO (12:04)
[2025-06-05] MEDS: DESENEX/MITRAZOL/ZEASORB 1 APPLIC TOPICAL ×2 (12:05→19:46)
[2025-06-05] MEDS: FLORASTOR 250 MG PO (12:05)
[2025-06-05] MEDS: FLOMAX 0.4 MG PO (12:16)
[2025-06-05] MEDS: CITROMA 300 ML PO (12:16)
[2025-06-05] MEDS: LASIX 20 MG PO (12:29)
[2025-06-05 12:39] LABS: APTT 99.7 Sec (23.4-35.0)
--- NOTE | 2025-06-05 13:23 | PTCARENOTE ---
Patient ambulating in room with supervision, due to left arm NWB and in a cast. Patient voided in bathroom without difficulty and had a large formed BM mixed with loose blood tinged BM. Patient has no c/o pain. Spouse at bedside. Physician aware of
blood tinged BM.
[2025-06-05 15:00] VITALS: BP 132/60
--- NOTE | 2025-06-05 15:23 | CM ---
Chart reviewed. Met with pt and . IA completed. IMM given. Lives with and son in single story home with no steps to the entrance and 2 steps to BR. Independent in ADLs and IADLs. Remote hx of HH, agency unknown, Remote hx of O2, agency
unknown.. Has spc in use PRN. No hx of SNF. No insecurities identified. Confirmed PCP, Rx, insurance and drug coverage.
PCP: Russel Grimm
RX: [facility].
Plan: Home with no needs.
[2025-06-05 16:33] LABS: Glucose - Point of Care 141 mg/dl (70-99)
[2025-06-05 19:37] VITALS: BP 138/61
[2025-06-05] MEDS: COLACE PO (19:49)
[2025-06-05 19:54] LABS: APTT 90.1 Sec (23.4-35.0)
[2025-06-05 21:30] LABS: Glucose - Point of Care 204 mg/dl (70-99)
[2025-06-05 23:38] VITALS: BP 134/61
[2025-06-06 03:16] VITALS: BP 123/61
[2025-06-06 05:35] VITALS: BMI 45.1
[2025-06-06 07:22] LABS: Hematocrit 37.2 % (39.0-52.0); Hemoglobin 11.9 g/dL (13.0-18.0); Mean Corp Hgb Conc. 32.0 g/dL (33.0-37.0); Mean Corpuscular Volume 88.6 fL (80.0-94.0); Nucleated Red Blood Cells % 0 % (-); Platelet Count 192 10^3/uL (130-400); Red Cell Dist. Width 13.7 % (11.5-14.5)
[2025-06-06 07:48] LABS: APTT 142.7 Sec (23.4-35.0)
[2025-06-06 07:53] LABS: Estimated Creatinine Clearance 92 ml/min; eGFR > 60.00
[2025-06-06 07:54] LABS: ALT (SGPT) 11 U/L (0-50); AST (SGOT) 12 U/L (17-59); Albumin 3.4 g/dl (3.5-5.0); Alkaline Phosphatase 105 U/L (38-126); Blood Urea Nitrogen 33 mg/dl (9-20); Calcium 8.7 mg/dl (8.4-10.2); Carbon Dioxide 29 mmol/L (22-30); Chloride 108 mmol/L (98-107); Glucose 131 mg/dl (70-99); Potassium 4.2 mmol/L (3.5-5.1); Sodium 140 mmol/L (135-145); Total Protein 5.9 g/dl (6.3-8.2)
[2025-06-06 08:10] VITALS: BP 152/68
[2025-06-06] MEDS: FLOMAX 0.4 MG PO (08:23)
[2025-06-06] MEDS: PRAVACHOL 40 MG PO (08:23)
[2025-06-06] MEDS: UROCIT-K 30 MEQ PO (08:23)
[2025-06-06] MEDS: CALAN EXTENDED RELEASE 240 MG PO (08:23)
[2025-06-06] MEDS: COLACE 100 MG PO (08:23)
[2025-06-06] MEDS: FLORASTOR 250 MG PO (08:23)
[2025-06-06] MEDS: ZESTRIL 40 MG PO (08:24)
[2025-06-06] MEDS: MIRALAX PO (08:24)
[2025-06-06] MEDS: DESENEX/MITRAZOL/ZEASORB 1 APPLIC TOPICAL (08:25)
[2025-06-06 08:30] LABS: Glucose - Point of Care 124 mg/dl (70-99)
[2025-06-06] MEDS: NOVOLOG FLEXPEN-LOW RESISTANCE SC (08:34)
--- NOTE | 2025-06-06 09:54 | PN.CDI ---
CDI
- -
CDI:
Physician Documentation Request
Admit Date: 06/04/25 20:03
Dear Doctor Rehan,
Please review the following and provide your response in the progress notes.
Clinical Indicators:
Pt admitted with Pulmonary embolism -provoked, small PE on CT scan but cannot rule out submassive PE due to possibility of RV strain and episode of diaphoresis and hypoxia.
Documented per EMS report, ' Pt has mild SOB with activity at times...O2 sat is 83-85%..O2 placed on at 6 LPM...O2 sats are better 91%-94%..'
Documented per ED, 'Upon arrival, the patients oxygen saturation level was critically low at 80%. He noted that his usual oxygen levels are typically around 94%...*Pulse OximetrySaO2: 93 Nasal Cannula flow liters per minute: 6...'
Selected Entries
06/04/25
15:48 06/04/25
16:00 06/04/25
17:31
Resp Rate 26
Nasal Cannula flow liters per minute 6 6
06/04/25
19:15 06/04/25
20:00 06/04/25
20:01
Resp Rate 33 31 27
06/04/25
22:30 06/04/25
22:39 06/05/25
08:20
Resp Rate 28
Nasal Cannula flow liters per minute 4 4
Clarify which of the following accurately represents the patient's respiratory status:
Acute Hypoxic Respiratory failure
Hypoxia- only
Other ( please specify)
Additional information for Respiratory Failure:
Recognized criteria for Respiratory Failure (Source: Jennifer Delcid. 2018July 25.
Documentation tips: Acute Respiratory Failure, The Hospitalist.)
ABGs: (1 or more) Symptoms Please indicate type if known
1. p)2 <60 or RA SPO2 <91% on RA 1. Tachypnea, SOB, dyspnea Hypoxic
2. pCO2 >45 and pH <7.35 2. Use of accessory muscles Hypercapnic
3. pO2 decrease of pCO2 increase by 3. Pallor or cyanosis Hypoxic and Hypercapnic
10 mmHg from baseline if known 4. Anxiety or restlessness Unable to determine
4. P/F Ratio (pO2/FiO2)nless than 300 5. Unable to speak in full sentences
Use of terms such as suspected, likely, concern for, or probable (associated with a specific diagnosis that is being evaluated, monitored, or treated as if it exists) are acceptable and can be coded in the inpatient setting, when documented at the
time of discharge.
Thank you,
Caridad Plaza RN
CDI Specialist
[facility]
Please use your independent medical judgment in providing your response.
[2025-06-06] MEDS: ROCEPHIN 1000 MG IV (10:16)
[2025-06-06] MEDS: STERILE WATER FOR INJECTION 10 ML IV (10:16)
[2025-06-06 11:29] VITALS: BP 133/54
[2025-06-06] MEDS: HEPARIN 25000 UNITS/250 ML IV (11:41)
[2025-06-06 11:47] LABS: Glucose - Point of Care 256 mg/dl (70-99)
[2025-06-06] MEDS: NOVOLOG FLEXPEN-LOW RESISTANCE 3 UNITS SC (11:52)
[2025-06-06] MEDS: VISBIOME 1 CAP PO (11:53)
--- NOTE | 2025-06-06 11:57 | W.PN.PUL3 ---
Today's Communication / Plan
-
Anticoagulation transition to oral
Discharge planning
Outpatient pulmonary follow-up
Assessment
-
Acute pulmonary isqxnczs-uryqdzbp-mmorq clot burden. Unlikely to be related to episode of dizziness.
Risk factor recent fall/immobility
Lower extremity ultrasound 06/05/2025: No DVT
Diaphoresis/hypoxia on admission: Suspect more related to constipation/vasovagal.
Constipation-stercoral colitis
-
Snoring- suspect SUSAN
-
Conditions present prior admission:
Mechanical fall-elbow fracture status post recent fall.
Type 2 diabetes
Hypertension
Obesity
Assessment and plan:
Small pulmonary embolism likely provoked from recent fall and immobility-left elbow fracture.
I doubt episode of dizziness that the patient describes was related to pulmonary embolism. I think more related to constipation and straining/vasovagal effect.
Not requiring oxygen supplementation.
Stable hemodynamically.
No significant symptoms to my evaluation 06/06/2025.
Echocardiac - without RV dysfunction.
Recommend 3 months of anticoagulation-Will discuss in the outpatient setting depending on mobility.
Okay to transition to oral anticoagulants today. Discussed with Dr. Van.
Agree with discharge planning
Outpatient pulmonary follow-up in the next couple of weeks. Likely will be okay to interrupt anticoagulation if he requires elbow surgery.
-
Stercoral colitis management per primary team.
Antibiotics for possible UTI per primary team.
-
Left olecranon fracture-eventual orthopedic evaluation
Analgesia per primary team
-
Suspect SUSAN- discussed with patient and - Recommend testing in outpx.
-
Eventual pulmonary evaluation in the outpatient setting.In the next 2 to 3 weeks.
Agree with discharge planning
Sign off

Data reviewed:
-
CT angiogram of the chest: Small filling defects in the right upper lobe anterior segmental pulmonary arteries consistent with pulmonary embolism.
-
Echocardiogram 06/05/2025: Ejection fraction 60 to 65%.
Normal right ventricular size and function.
Mild MR.
Subjective Data
-
Date of Service:
Date of Service: June 06, 2025
Chief Complaint: Pulmonary Follow Up (Acute pulmonary embolism)
Subjective:
Denies any new complaints
tolerating anticoagulation
Review of Systems
Cardiopulmonary: Dyspnea (none at rest), Cough (n) and Sputum Production (n)
GI: Abdominal Pain (n)
Objective Data
Data Reviewed
Vital Signs / I&O / Oxygen:
Vital Signs
Temp Pulse Resp BP Pulse Ox
98.1 F 72 18 133/54 97
06/06/25 11:29 06/06/25 11:29 06/06/25 11:29 06/06/25 11:29 06/06/25 11:29
Intake and Output
06/05/25 06/06/25 06/07/25
06:59 06:59 06:59
Intake Total 1880 / 1880 1380 / 1380 360 / 360
Output Total 1550 / 1550 1750 / 1750
Balance 330 / 330 -370 / -370 360 / 360
SaO2 97
Nasal Cannula flow liters per 4
minute
Physical Exam
General: Comfortable
HEENT: Normocephalic
Cardiovascular: S1-S2
Respiratory: Clear and Non-Labored Respirations
GI: Soft and Non Distended
Neurology: Awake and Alert
Skin: Warm
Labs/Micro/Reports
Lab Data
06/06/25 06:49
06/06/25 06:49
Laboratory Results
06/05/25 06/05/2525
12:12 19:36 06:49
APTT 99.7 H 90.1 H 142.7 H
Microbiology
06/04/25 22:28 Urine Urine Culture - Final
--- NOTE | 2025-06-06 12:04 | PTOTSP ---
The patient was able to stand and ambulate in the hallway independently, offering no concerns regarding mobility upon return home. No PT needs identified at this time, will sign off.
--- NOTE | 2025-06-06 12:19 | W.PN.HOSP.TC ---
Addendum entered and electronically signed by Sonny Van MD 06/06/25 13:07:
Time of discharge 38 minutes
Original Note:
Today's Communication/Plan
-
Monitor vital signs see plan
Discussed with pulmonary, change IV heparin to Eliquis
Patient will follow-up outpatient
Continue laxatives
Assessment / Plan
Assessment / Plan
General: Conversant and Obese; No Fever or Chills
HEENT: NormoCephalic, Anicteric, Moist mucous membranes
Respiratory: Clear; No Wheezes, Rales or Rhonchi
Cardiac: S1/S2 and Regular Rhythm; No Murmur, Rub or Gallop
GI: Normal Bowel Sounds, Nontender
Neuro: AO x 3, No Motor Deficits, Nonfocal/grossly intact
Psych: Calm
Pulmonary embolism - likely provoked, small PE on CT scan but cannot rule out submassive PE due to possibility of RV strain and episode of diaphoresis and hypoxia.
Acute hypoxic respiratory failure likely secondary to above
-IV heparin for now; change to eliquis if covered. CM made aware
-trop noted
- u/s cj LE neg for DVT
-Echo without right heart strain
pulmonary following. Patient will follow-up with them outpatient
Now weaned off oxygen
-Pain control
Stercoral colitis -constipation with moderate to large stool burden, no impaction on rectal exam
Resolved, now with multiple BM
Continue laxative
Pyelitis on CT scan - does report urgency
ua suggestive of UTI; urine cx mixed manisha
switch abx to PO for finish course
Urinary retention, history of BPH status post TURP
Start Flomax
Bladder scan as needed
DM2
- Hold metformin for now
- Sliding scale insulin
Hypertension -currently stable
continue verapamil,lisinopril
- Continue Lasix 20 mg prn
left olecranon minimally displaced fracture
-Keep immobilized in cast
- Outpatient follow-up with Ortho
CODE STATUS�full code
Anticipated Discharge: Today
Subjective/Interval History
-
Date of Service: June 06, 2025
Denies chest pain
Objective Data
-
Labs:
Laboratory Results
06/06/25 06/06/25
06:49 15:45
WBC 7.1
Hgb 11.9 L
Hct 37.2 L
Plt Count 192
APTT 142.7 H Pending
Sodium 140
Potassium 4.2
Chloride 108 H
Carbon Dioxide 29
BUN 33 H
Creatinine 0.9
Glucose 131 H
Calcium 8.7
Total Bilirubin 0.9
AST 12 L
ALT 11
Alkaline Phosphatase 105
Vital Signs:
Vital Signs
Temp Pulse Resp BP Pulse Ox
98.1 F 72 18 133/54 97
06/06/25 11:29 06/06/25 11:29 06/06/25 11:29 06/06/25 11:29 06/06/25 11:29
I&O
06/05/25 06/06/25 06/07/25
06:59 06:59 06:59
Intake Total 1880 / 1880 1380 / 1380 360 / 360
Output Total 1550 / 1550 1750 / 1750
Balance 330 / 330 -370 / -370 360 / 360
[2025-06-06] MEDS: ELIQUIS 10 MG PO (12:37)
--- NOTE | 2025-06-06 12:56 | CM ---
Reviewed chart. Obtained pricing for Elliquis 5mg twice a day for 30 days - $45 copay
Pt will be discharged today on Eliquis.
Plan: Home no needs
--- NOTE | 2025-06-06 13:07 | W.DCSUMMARY ---
Discharge Summary
Discharge Data
Date of Admission: 06/04/25
Date of Discharge: 06/06/25
-
Pending Results: No
Hospital Course
75-year-old male with past medical history of diabetes mellitus, hypertension, recent left olecranon minimally displaced fracture, BPH status post TURP came to the hospital with chest pain and shortness of breath. Imaging was consistent with acute
pulmonary embolism. Patient initially required oxygenation which was able to be weaned off prior to discharge. Initially was put on IV heparin which was later transitioned to Eliquis prior to discharge. Patient was seen by pulmonary throughout
hospitalization and was instructed to follow-up with them outpatient. Bilateral lower extremity ultrasound was negative for DVT. Echocardiogram was also without right heart strain and EF was preserved. On this hospitalization he also had
stercoral colitis which improved with laxatives. Imaging was also consistent with possible pyelitis and given his urinary symptoms he was treated with antibiotics. Once his symptoms continue to improve, he was then discharged home with
instructions to follow-up with all his physicians outpatient.
Discharge Plan
-
Patient Disposition: Home (Routine Discharge)
Discharge Diagnosis/Procedures: Acute pulmonary embolism
Suspect pyelitis
Stercoral colitis
Urinary retention
History of BPH status post TURP
Diet: Diabetic, Carb Controlled
Activity: As tolerated
Driving Restrictions: As prior to admission
Bathing Restrictions: None
Activity Restrictions/Additional Instructions:
Continue Eliquis 10 mg twice daily through 06/12, starting 06/13 start 5 mg twice daily
Referrals:
Delmer Ambrose MD [Active, Pulmonary Medicine] - in two weeks
Referral Note: May see [facility]IEF [facility]RAFTER first, Pulmonary embolism and SUSAN evaluation.
UNKNOWN - PT DOES,NOT KNOW [Unknown Provider] - in less than 1 week
Estevan Green MD [Active, Hematology / Oncology]
Prescriptions:
New
Eliquis 5 mg tablet
5 mg PO BID Qty: 60 0RF
Rx Instructions:
continue 10mg BID through 06/12; starting 06/13 start 5mg BID
miconazole nitrate 2 % Powder
1 applic topical BID Qty: 85 0RF
docusate sodium 100 mg Capsule
100 mg PO BID Qty: 0 0RF
polyethylene glycol 3350 17 gram Powder In Packet
17 g PO DAILY Qty: 0 0RF
tamsulosin 0.4 mg Capsule
0.4 mg PO DAILY Qty: 30 0RF
cefdinir 300 mg capsule
300 mg PO BID Qty: 20 0RF
Continued
pravastatin 40 mg tablet
40 mg PO DAILY
trandolapril-verapamil 4-240 mg tablet, IR - ER, biphasic 24hr
1 tab PO DAILY
Patient Comments:
06/09/2023: FAMILY WILL SEND MED WITH PT
Saccharomyces boulardii 250 mg Capsule
250 mg PO DAILY 5 Days Qty: 5 0RF
furosemide [Lasix] 20 mg Tablet
20 mg PO DAILY PRN (Reason: swelling)
potassium citrate 15 mEq Tablet Extended Release
60 meq PO BID
metformin 850 mg Tablet
850 mg PO BID
Discharge Orders:
Discharge Patient (As Directed); Ordered 06/06/25
Ordered By: Sonny Van
Discharge Date and Time
Discharge Date/Time: 06/06/25 14:39
Print Language: DIVEHI
== END 2025-06-06 14:39 | disposition home or self-care (01) | DRG 175 ==
LOC: 4 EAST ACU 20:03
PROVIDERS: ADMITTING PHYSICIAN Internal Medicine; ATTENDING PHYSICIAN Internal Medicine; CONSULT PHYSICIAN Internal Medicine Critical Care Medicine; EMERGENCY PHYSICIAN Emergency Medicine; FAMILY PHYSICIAN Internal Medicine
DX: I26.99 Other pulmonary embolism without acute cor pulmonale (principal); J96.01 Acute respiratory failure with hypoxia; Z68.42 Body mass index [BMI] 45.0-49.9, adult; N12 Tubulo-interstitial nephritis, not specified as acute or chronic; K59.00 Constipation, unspecified; I48.0 Paroxysmal atrial fibrillation; R29.6 Repeated falls; E11.9 Type 2 diabetes mellitus without complications; E78.00 Pure hypercholesterolemia, unspecified; I10 Essential (primary) hypertension; E66.9 Obesity, unspecified; R61 Generalized hyperhidrosis; J30.81 Allergic rhinitis due to animal (cat) (dog) hair and dander; K52.89 Other specified noninfective gastroenteritis and colitis; N20.0 Calculus of kidney; N40.1 Benign prostatic hyperplasia with lower urinary tract symptoms; R33.8 Other retention of urine; S52.022A Displaced fracture of olecranon process without intraarticular extension of left ulna, initial encounter for closed fracture; S70.10XA Contusion of unspecified thigh, initial encounter; W11.XXXA Fall on and from ladder, initial encounter; Y93.9 Activity, unspecified; Y92.009 Unspecified place in unspecified non-institutional (private) residence as the place of occurrence of the external cause; Z80.1 Family history of malignant neoplasm of trachea, bronchus and lung; Z83.3 Family history of diabetes mellitus; Z87.442 Personal history of urinary calculi; Z82.49 Family history of ischemic heart disease and other diseases of the circulatory system; Z79.84 Long term (current) use of oral hypoglycemic drugs; Z90.79 Acquired absence of other genital organ(s); Z91.030 Bee allergy status; Z91.018 Allergy to other foods
CPT/HCPCS: 71275; 74177; 80053; 81003; 81015; 82962; 83880; 84484; 85025; 85027; 85610; 85730; 87086; 93005; 93306; 93970; 96361; 96365; 97161; 99285; Q9950; Q9967

== ENCOUNTER 2025-06-12 06:26 | Day surgery (SDC) | payer BC, MEDICARE, SELFPAY ==
--- NOTE | 2025-06-11 13:34 | PTCARENOTE ---
Patients 06/06 PTT- 142.7- Christine @ Dr. Bethea office notified
[2025-06-12] VITALS (9 sets, daily range): BP systolic 153–170; BP diastolic 73–87
[2025-06-12 15:21] LABS: Glucose - Point of Care 102 mg/dl (70-99)
[2025-06-12] MEDS: TYLENOL 1000 MG PO (15:26)
[2025-06-12] MEDS: NORMOSOL-R/PLASMALYTE-A 1000 IV (15:26)
[2025-06-12 17:18] LABS: Glucose - Point of Care 100 mg/dl (70-99)
--- NOTE | 2025-06-12 17:23 | SUR.PHASEI ---
Rec'd sleepy on stretcher with HOb elevated low fowlers, oriented x 3 by RN reassured positioned for comfort
[2025-06-12] MEDS: DILAUDID 0.5 MG IV ×2 (17:27→17:45)
--- NOTE | 2025-06-12 17:38 | SUR.PHASEI ---
c/o pain L elbow, repositioned, medicated son well, reassured
--- NOTE | 2025-06-12 17:50 | SUR.PHASEI ---
No relief noted. repositioned, medicated son well, O2 reapplied for SAO2 90 son well
--- NOTE | 2025-06-12 18:04 | SUR.PHASEI ---
Arouses easily, pain lessening, reassured, SAO2 95 on RA
[2025-06-12] MEDS: ROXICODONE 10 MG PO (18:54)
== END 2025-06-12 19:35 | disposition home or self-care (01) ==
LOC: SDS 06:26
PROVIDERS: ATTENDING PHYSICIAN Orthopaedic Surgery Hand Surgery
DX: S52.022A Displaced fracture of olecranon process without intraarticular extension of left ulna, initial encounter for closed fracture (principal); W11.XXXA Fall on and from ladder, initial encounter
CPT/HCPCS: 24685; 82962; C1713

== ENCOUNTER → 2025-07-25 13:55 | Outpatient (REF) | payer BC, MEDICARE, SELFPAY | LOC: RAD 13:55 | PROVIDERS: ATTENDING PHYSICIAN Nurse Practitioner | DX: S80.12XA Contusion of left lower leg, initial encounter (principal); J06.9 Acute upper respiratory infection, unspecified | CPT/HCPCS: 93971 ==